=== PATIENT | female | born 1985 | race Caucasian/White ===

== ENCOUNTER 2021-01-21 00:31 | Inpatient (IN) | payer MEDICAID, OTHER ==
[2021-01-21 02:03] LABS: Amphetamine Screen,Urine Detected (NotDetected); Barbiturate Screen,Urine Not Detected (NotDetected); Benzodiazepines Screen,Urine Not Detected (NotDetected); Cocaine Screen,Urine Not Detected (NotDetected); Methadone Screen, Urine Not Detected (NotDetected); Opiate Screen,Urine Not Detected (NotDetected); Oxycodone Screen, Urine Not Detected (NotDetected); Phencyclidine Screen,Urine Not Detected (NotDetected); Tricyclic Antidepressant,Urine Not Detected (NotDetected); Urn Cannabinoid Scrn Not Detected (NotDetected)
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
[2021-01-21] MEDS ORDERED: LORazepam 1 MG TAB PO PRN (04:55)
[2021-01-21] MEDS ORDERED: ACETAMINOPHEN TAB 325 MG TAB PO PRN (04:55)
[2021-01-21] MEDS ORDERED: HALOPERIDOL LACTATE 5 MG/ML 1 ML VIAL IM PRN (04:58)
[2021-01-21] MEDS ORDERED: LORazepam 2 MG/ML INJ IM PRN (04:58)
[2021-01-21] MEDS ORDERED: VENLAFAXINE HCL ER 37.5 MG CAP PO STA (11:26)
[2021-01-21] MEDS: NICOTINE 14MG/24HR PATCH TRANSDERM SCH (11:31)
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
[2021-01-21] MEDS: MAG HYDROX/AL HYDROX/SIMETH 30 ML CUP PO PRN (17:32)
[2021-01-21] MEDS: cloNIDine HCL 0.1 MG TAB PO SCH (22:12)
--- NOTE | 2021-01-22 04:36 | P.MDCNMH ---
History of Present Illness H&P Date: 01/21/21 Chief Complaint: Medical evaluation 35-year-old female with history of PCO S and seasonal ALLERGIES Patient is here for possible vikki and bizarre behavior she was brought in by her mom patient has delusions of being poisoned at home or being ALLERGIC to different types of food. She describes vague symptoms of tingling around her face when eating certain foods and then jumps into talking about body aches. She has flight of ideas and keeps jumping from one thought process another started voicing concerns regarding coping to be evaluated for diabetes and other medical issues like cholesterol. Then she starts talking about seasonal ALLERGIES and stuffy nose. Patient really doesn't have any organized thought process at this time however she doesn't seem to have any major medical complaints to be concerned about at this point she doesn't follow up with any PCP. She denies any drug abuse, denies any alcohol, but does admit to tobacco smoking Otherwise he denies any fevers or chills coughing chest pain or trouble breathing Review of Systems Pertinent positives as noted in HPI. All other systems were reviewed and are negative Past Medical History Past Medical History: No Reported History History of Any Multi-Drug Resistant Organisms: None Reported Past Surgical History: Section Additional Past Surgical History / Comment(s): X3 Past Anesthesia/Blood Transfusion Reactions: No Reported Reaction Past Psychological History: No Psychological Hx Reported, PTSD Smoking Status: Current every day smoker Past Alcohol Use History: Rare Past Drug Use History: None Reported - Past Family History Family Family Medical History: No Reported History Medications and Allergies Home Medications Medication Instructions Recorded Confirmed Type No Known Home Medications 01/21/21 01/21/21 History Allergies Allergy/AdvReac Type Severity Reaction Status Date / Time latex Allergy Dyspnea Verified 01/21/21 08:47 naproxen [From Aleve] Allergy Rash/Hives/ Verified 01/21/21 08:47 Swelling Pepper Allergy Nausea & Verified 01/21/21 14:36 Vomiting Physical Exam Vitals: Vital Signs Temp Pulse Resp BP 01/21/21 10:11 97.9 F 79 18 107/60 Intake and Output 01/21/21 01/21/21 01/22/21 14:59 22:59 06:59 Other: Weight 99.337 kg Constitutional: No acute distress, conversant, pleasant Eyes: Anicteric sclerae, moist conjunctiva, Pupils equal round reactive to light ENMT: NC/AT Oropharynx clear, no erythema, or exudates Neck: Supple, FROM, no masses, or JVD No carotid bruits No thyromegaly Lungs: Clear to auscultation Clear to percussion Normal respiratory effort, no accessory muscle use Cardiovascular: Heart regular in rate and rhythm, No murmurs, gallops, or rubs No peripheral edema Abdominal: Soft Nontender, no guarding, rebound or rigidity Abdomen moving with respiration Normoactive bowel sounds No hepatomegaly, No splenomegaly No palpable mass No abdominal wall hernia noted Skin: Normal temperature, tone, texture, turgor No induration No subcutaneous nodules No rash, lesions No ulcers Extremities: No digital cyanosis No clubbing Pedal pulses intact and symmetrical Radial pulses intact and symmetrical No calf tenderness Psychiatric: Alert and oriented to person, place and time Neuro Muscles Strength 5/5 in all 4 extremities Sensation to light touch grossly present throughout Cranial nerves II-XII grossly intact No focal sensory deficits Lymphatics: no palpable cervical or supraclavicular , or inguinal lymph nodes Cranial Nerve Examination - Cranial Nerves Cranial Nerve II- Optic: Intact Cranial Nerve III- Oculomotor: Intact Cranial Nerve IV- Trochlear: Intact Cranial Nerve V- Trigeminal: Intact Cranial Nerve - Abducens: Intact Cranial Nerve VII- Facial: Intact Cranial Nerve VIII- Auditory: Intact Cranial Nerve IX- Glossopharyngeal: Intact Cranial Nerve X- Vagus: Intact Cranial Nerve XI- Accessory: Intact Cranial Nerve XII- Hypoglossal: Intact Assessment and Plan Assessment: Bizarre behavior acute vikki Psych evaluation Several medical concerns requesting to be evaluated for diabetes mellitus, hyperlipidemia, complains of multiple body aches and off-and-on tingling sensations History of PCO S Tobacco smoking Seasonal ALLERGIES, Flomax when necessary Follow-up labs Check A1c Check lipid profile Check TSH Thank you for allowing us to participate in the care of this patient. We will follow peripherally. Do not hesitate to contact us with questions. Someone can be reached from the [facility] hospitalist group at all hours of the day at [phone].
[2021-01-22] MEDS ORDERED: FLUTICASONE 50MCG/SPRAY NASAL 16GM EA NOSTRIL PRN (05:00)
[2021-01-22] MEDS: NICOTINE 14MG/24HR PATCH TRANSDERM SCH (08:54)
[2021-01-22] MEDS: VENLAFAXINE HCL ER 75 MG CAP PO SCH (08:54)
[2021-01-22] MEDS: cloNIDine HCL 0.1 MG TAB PO SCH ×2 (08:54→21:07)
[2021-01-22 11:26] LABS: Basophils # (A) 0.1 k/uL (0-0.2); Basophils % (A) 1 %; Eosinophils # (A) 0.3 k/uL (0-0.7); Eosinophils % (A) 2 %; HGB 15.1 gm/dL (11.4-16.0); Lymphocytes # (A) 2.9 k/uL (1.0-4.8); Lymphocytes % (A) 24 %; MCH 30.9 pg (25.0-35.0); MCHC 34.3 g/dL (31.0-37.0); MCV 90.1 fL (80.0-100.0); Mean Platelet Volume 7.3; Monocytes # (A) 0.6 k/uL (0-1.0); Monocytes % (A) 5 %; Neutrophils % (A) 67 %; Platelet Count 280 k/uL (150-450); RBC 4.89 m/uL (3.80-5.40); RDW 12.4 % (11.5-15.5)
[2021-01-22 11:27] LABS: ALT 18 U/L (4-34); AST 20 U/L (14-36); African American GFR (CKD) >90 (>60 ml/min/1.73 sqM); Albumin 4.4 g/dL (3.5-5.0); Alkaline Phosphatase 60 U/L (38-126); Anion Gap 10 mmol/L; Blood Urea Nitrogen 14 mg/dL (7-17); Calcium 9.4 mg/dL (8.4-10.2); Carbon Dioxide 26 mmol/L (22-30); Chloride 103 mmol/L (98-107); Glucose 97 mg/dL (74-99); Non-African American GFR(CKD) 89 (>60 ml/min/1.73 sqM); Potassium 4.4 mmol/L (3.5-5.1); Sodium 139 mmol/L (137-145); Total Bilirubin 0.7 mg/dL (0.2-1.3); Total Protein 7.3 g/dL (6.3-8.2)
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
[2021-01-22 17:10] LABS: Chol/HDL Ratio 3.98; Cholesterol 175 mg/dL (0-200); LDL Cholesterol,Calculated 112.8 mg/dL (0.0-131.0)
[2021-01-22 21:29] LABS: Hemoglobin A1C 5.6 % (4.0-6.0)
[2021-01-23] MEDS: NICOTINE 14MG/24HR PATCH TRANSDERM SCH (08:15)
[2021-01-23] MEDS: VENLAFAXINE HCL ER 75 MG CAP PO SCH (08:16)
[2021-01-23] MEDS: cloNIDine HCL 0.1 MG TAB PO SCH ×2 (08:18→21:03)
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
[2021-01-24] MEDS: cloNIDine HCL 0.1 MG TAB PO SCH (08:40)
[2021-01-24] MEDS: NICOTINE 14MG/24HR PATCH TRANSDERM SCH (08:40)
[2021-01-24] MEDS: VENLAFAXINE HCL ER 75 MG CAP PO SCH (08:40)
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
[2021-01-24] MEDS: PRAZOSIN 1 MG CAP PO SCH (20:05)
[2021-01-25] MEDS: VENLAFAXINE HCL ER 75 MG CAP PO SCH (08:33)
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
[2021-01-25] MEDS: PRAZOSIN 1 MG CAP PO SCH (21:01)
[2021-01-25] MEDS: MAG HYDROX/AL HYDROX/SIMETH 30 ML CUP PO PRN (22:56)
[2021-01-26] MEDS: VENLAFAXINE HCL ER 75 MG CAP PO SCH (08:24)
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
[2021-01-26] MEDS: PRAZOSIN 1 MG CAP PO SCH (21:06)
[2021-01-27] MEDS: VENLAFAXINE HCL ER 75 MG CAP PO SCH (08:03)
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
[2021-01-27] MEDS: PRAZOSIN 1 MG CAP PO SCH (20:38)
[2021-01-27] MEDS ORDERED: PALIPERIDONE 3 MG TAB.ER.24 PO SCH (21:00)
[2021-01-28] MEDS: VENLAFAXINE HCL ER 75 MG CAP PO SCH (08:27)
--- NOTE | 2021-01-28 11:12 | P.PN ---
Progress Note - Text Progress Note Date: 01/28/21 Interval History: Patient was in her room and was agreeable to speak with the specification writer in the office. The patient is currently denying any suicidal or homicidal ideation, intention, and/or plan. She is denying any auditory or visualspeech is reporting no paranoia or delusions. The patient is inquiring about discharge. She states that she signed a release of information for her sister Zara has not is the only sister that she trusts at this time. Collateral information was obtained by her sister Zara reports that the patient has been increasingly paranoid and believes that the family has been trying to poison her. Zara vehemently denies that the family is in any way trying to poison her or harm her. She also notes that Maria D has endorsed bizarre delusions to her including believing she was telekinetic, had ability to control lights, and has people following her or trailing her. Zara also mentions that Maria D told her children that there is a bomb in the basement of their home. Zara expresses Maria D began exhibiting psychotic symptoms 4-5 years ago. She suspects it was after the of her son that Maria D has been acting bizarre and isolative. She suspects it is related to Maria D's loss of her first son who . Her sister also reports that Maria D has not been sleeping prior to the admission. Mental Status Exam: General Appearance: Patient appears to be stated age is alert, directable, and cooperative. Multiple tattoos and large spacers for earrings. Behavior: Patient is calmly seated without any agitated behavior. Psychomotor activity is normal. Eye contact is intense. Speech: Patient's speech is spontaneous, rapid, hyperverbal but interruptible. Mood/Affect: Mood is anxious, affect is expansive and intense. Suicidality/Homicidality: Patient denies having any suicidal or homicidal ideation intent or plan. Perceptions: Patient denies any visual hallucinations and denies any auditory hallucinations Though content/process: Denies overt paranoia or delusions. Thought process is linear and logical. Memory and concentration: AOX3, grossly intact for the purposes of this session Judgment and insight: Poor Vital Signs Temp 98.1 F 01/28/21 06:01 Pulse 72 01/28/21 06:01 Resp 16 01/28/21 06:01 BP 116/68 01/28/21 06:01 Pulse Ox 96 01/28/21 06:01 Assessment Posttraumatic stress disorder Bipolar Disorder, type I, manic episode with psychotic features Rule out methamphetamine abuse Rule out cluster B personality disorder Plan: -Patient continues to meet criteria for inpatient psychiatric admission for symptom stabilization and safety. Patient deferred mental health court. -Collateral information from Zara (patient's sister - [phone]) confirms psychosis that the patient is guarded with sharing. -Medications: Continue Effexor XR 75 mg daily for depression/PTSD/anxiety Continue prazosin 1 mg at bedtime for PTSD related nightmares Increase invega to 6 mg at bedtime for mood stabilization. Titrate this medication with plans to transition to TELLEZ invega sustenna. -When necessary Ativan and Haldol for agitation/aggression. -SW on board for discharge planning. Encouraged the patient to participate in milieu.
[2021-01-28] MEDS: PRAZOSIN 1 MG CAP PO SCH (20:17)
[2021-01-28] MEDS: PALIPERIDONE 3 MG TAB.ER.24 PO SCH (20:17)
[2021-01-29] MEDS: VENLAFAXINE HCL ER 75 MG CAP PO SCH (08:19)
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
[2021-01-29] MEDS: PALIPERIDONE 3 MG TAB.ER.24 PO SCH (20:09)
[2021-01-29] MEDS: PRAZOSIN 1 MG CAP PO SCH (20:09)
[2021-01-30] MEDS: VENLAFAXINE HCL ER 75 MG CAP PO SCH (07:50)
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
[2021-01-30] MEDS: PALIPERIDONE 3 MG TAB.ER.24 PO SCH (21:00)
[2021-01-30] MEDS: PRAZOSIN 1 MG CAP PO SCH (21:00)
[2021-01-31] MEDS: VENLAFAXINE HCL ER 75 MG CAP PO SCH (08:20)
--- NOTE | 2021-01-31 15:21 | PN ---
PROGRESS NOTE DATE OF SERVICE: 01/31/2021. CHIEF COMPLAINT: The patient was admitted on petition and was felt to be very paranoid, acting bizarrely and believing people were trying to poison her. INTERVAL HISTORY: Patient has been doing fair. She mostly had a quiet day yesterday. She continues with ups and downs in her mood. She still has a fair amount of distress over the fact being in the hospital altogether. She would note that all of the issues where a family have felt that she was psychotic are misled and that in fact everything that she has struggled with relates to having had real trauma. She talked about different situations where she believed milk and Gatorade had been poisoned and still was quite fixated on the idea that these things were real and not her paranoid delusions. She slept fair last night. Today, she has been up. She comes out in the day area. She attends group. She gets herself around the unit. She will socialize with others. She tolerates her psychotropic medications. I had a telephone contact with the patient's sister, Zara. Part of the conversation was on speaker phone with the patient engaged as well. Part of the conversation was private with Zara. Zara indicated that the patient has likely been struggling with the issues of paranoia over the last 4 years. She noted that several of the family members have had concerns at different times. It seemed like things were getting more intense over the last week or more. Zara gave as an example about some of her thinking that when she was at the park with her children she wondered why there were not guards there and cameras for security. It is noted that since she has been on the unit and has had telephone contact with Zara, that she has not expressed much concern about her children. She had made some accusations believing that her parents were abusing her children. She would make bizarre statements at times, such as talking about a sister being on various medications, which was in fact not the case. Apparently in recent times, police had been called to the house on a number of occasions. One episode recently led to her being brought to the hospital. She was found to have amphetamines in her system which she claimed was poisoning. After returning home, the sister noted that the patient continued to show odd and bizarre behavior. For most of the time after that at different times recently, mother had indicated the patient was acting irrational. At one point recently, she called 911 complaining of a gas leak, though nothing resulted from an inspection of the propane system. In all of these instances, the patient was very adamant about the idea that the issues were real and legitimate and not that she was having some kind of delusional thinking. She was very distressed over feeling that her family has essentially abandon her. At this point, she was very intense about these issues and was adamant about the idea that she does not have paranoia or other delusions. It is noteworthy that she has just been started on Invega as of , and the dose was just increased Sunday to 6 mg. She tolerates her psychotropic medications. MENTAL STATUS: Patient was fairly restless. She answered questions with brief responses. Her thoughts were clear. As the interview went on, she became more and more distressed, feeling that she was in the hospital situation and being held against her will for no valid reason. She became tearful. She had clear thoughts and mostly was focused on making statements about how various events were in fact real and legitimate and not delusional. Her affect was intense. Her mood depressed. She was significantly distressed. She shows paranoid thinking. She voiced no thoughts of harm. Cognition was clear. ASSESSMENT: I will continue the current diagnosis and treatment plan. I will continue psychotropic medications the same. Her Invega has just gone up to 6 mg a day. We will take additional time before we see if she gets more benefit in terms of helping to resolve psychosis. She will continue Effexor XR 75 mg a day and Minipress 1 mg at bedtime. I have briefly reviewed medications issues with the patient, though she was not inclined to engage much in that conversation. We will focus on stabilization and discharge planning. MMODL / IJN: [id number] /
[2021-01-31] MEDS ORDERED: traZODone HCL 50 MG TAB PO SCH (21:00)
[2021-01-31] MEDS: PALIPERIDONE 3 MG TAB.ER.24 PO SCH (21:01)
[2021-01-31] MEDS: PRAZOSIN 1 MG CAP PO SCH (21:01)
[2021-02-01] MEDS: VENLAFAXINE HCL ER 75 MG CAP PO SCH (08:18)
[2021-02-01] MEDS: PALIPERIDONE 6 MG TAB.ER.24 PO SCH ×2 (12:05→20:45)
[2021-02-01 12:41] VITALS: BMI 35.7
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
[2021-02-01] MEDS: PRAZOSIN 1 MG CAP PO SCH (20:45)
[2021-02-01] MEDS: traZODone HCL 50 MG TAB PO SCH (20:45)
[2021-02-01] MEDS ORDERED: PALIPERIDONE 3 MG TAB.ER.24 PO SCH (22:00)
[2021-02-02] MEDS: VENLAFAXINE HCL ER 150 MG CAP PO SCH (08:28)
[2021-02-02] MEDS: PALIPERIDONE 6 MG TAB.ER.24 PO SCH ×2 (08:28→22:26)
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
[2021-02-02] MEDS: PRAZOSIN 1 MG CAP PO SCH (22:25)
[2021-02-02] MEDS: traZODone HCL 50 MG TAB PO SCH (22:26)
[2021-02-03] MEDS: VENLAFAXINE HCL ER 150 MG CAP PO SCH (08:10)
[2021-02-03] MEDS: PALIPERIDONE 6 MG TAB.ER.24 PO SCH ×2 (08:10→12:05)
[2021-02-03] MEDS ORDERED: PALIPERIDONE IM 234 MG/1.5 ML SYG IM STA (11:22)
--- NOTE | 2021-02-03 14:06 | PN ---
PROGRESS NOTE DATE OF SERVICE: 02/03/2021. CHIEF COMPLAINT: The patient was admitted on petition and was felt to be very paranoid, acting bizarrely, believing people were trying to poison her. INTERVAL HISTORY: Patient has been doing fair. She had some ups and downs in her mood yesterday. She was distressed over the discussion we had yesterday, which included that we required to make a report to CPS given the complicated situation that she has been in, with her children being cared for by her family. She had some ups and downs in her mood. She does come out in the day area. She interacts quite a bit with others. She can get intense at times, though also she can seem to get into a little more stable mood state. She attended most groups yesterday and did reasonably well in group. She slept well last night, today she has been up. She continues to show some issues in her thinking. In the 9:30 social work group, the following descriptors were noted: "suspicious racing thought process." In the 11:00 am group, the following descriptors were noted: "bright, dramatic, concrete, initiates. Patient preoccupied with medications and long- acting injection." The patient spent quite a bit of time today focused on the petition issue. We discussed the indications for the petition. It is noted that she signed deferral on January 27. I explained at length the options in regard to a deferral versus a court hearing. We talked about either anticipating her to be in 6 months of treatment with the main focus to be working a treatment plan with her prescribers, and then being consistent in following through with treatment. By the end of the conversation, the patient seems somewhat reassured in that regard. We discussed medication options and the patient was willing to initiate Invega Sustenna as a long-acting injectable. In addition, we talked about some discharge planning issues, given that at this point, the patient is without a residence, though she apparently does have some resources. She tolerates psychotropic medications. MENTAL STATUS: Patient gave fairly good eye contact. She was quite restless. She answered questions appropriately, though at times she tended to ramble. She could be quite intense at times. I needed to interrupt her to bring her back on track in the conversation. As the interview went on, she was a little more focused and appropriately interactive. Her affect, for the most part, was intense. Her mood was dysphoric. She was moderately distressed. She continues to show some paranoid thinking. She voiced no thoughts of harm. Cognition was clear. ASSESSMENT: I will continue the current diagnosis and treatment plan. I will reduce her Invega from 6 mg twice a day down to 6 mg a day. The patient will receive Invega Sustenna 234 mg IM today with anticipation that she will receive a followup dose of Invega 156 mg IM in one week. I had an extensive discussion with the patient regarding treatment issues and her medications. I reviewed indication, potential side effects and longer-term concerns relating to metabolics and movement disorder issues, as it relates to Invega. We discussed followup through [facility]. She will be getting an intake through [facility] while she is on the psychiatric unit. We will be working with her on looking at potential housing options. We will focus on stabilization and discharge planning. VESTA / ALE: [id number] /
[2021-02-03] MEDS: PRAZOSIN 1 MG CAP PO SCH (19:59)
[2021-02-04] MEDS: VENLAFAXINE HCL ER 150 MG CAP PO SCH (09:06)
[2021-02-04] MEDS: PALIPERIDONE 6 MG TAB.ER.24 PO SCH (09:06)
[2021-02-04] MEDS ORDERED: TETRAHYDROZOLINE 0.05% OPHTH DROPS 15 ML BTL BOTH EYES PRN (17:43)
--- NOTE | 2021-02-04 18:53 | PN ---
PROGRESS NOTE DATE OF SERVICE: 02/04/2021. CHIEF COMPLAINT: The patient was admitted on petition and was felt to be very paranoid, acting bizarrely, and believing people were trying to poison her. INTERVAL HISTORY: Patient has been doing fair. She had a quiet day yesterday. She comes out on the unit. She interacts with others, at times she can present in an apparent superficially bright manner. She attends groups and seems to do well in groups. She received Invega Sustenna 234 mg IM injection yesterday without difficulty. She slept fairly well last night. She does wake some through the night, though says it has been better than what she had been sleeping today. She has been up. She continues to do the same. She did complain of some dry eyes, whether that was related to her medications was not clear. She says overall her mood is improved. It is noteworthy that she talked about discharge planning issues some. She also seems to have a little better insight about her situation. She was able to say today that the things her sisters have said about observing her did not really take into account that they did not understand the severity of her PTSD issues and how that had caused her to get into such a high level of distress. The way she presented it, seemed to indicate that she was a little more accepting of the idea that her thought process may have gone awry. A CPS referral has been made. The patient tolerates her psychotropic medications. MENTAL STATUS: Patient sat without restlessness. She gave fairly good eye contact. She answered questions with direct responses. She asked a few appropriate questions. Her thoughts were clear. Her affect was a little constricted though she presented in a calm manner. Her mood was reserved though not clearly down or depressed. She did not appear to be significantly distressed. There was no immediate indication of symptoms of thought disorder, though some level of paranoia may persist, though lessening overall. She voiced no thoughts of harm. Cognition was clear. ASSESSMENT: I will continue the current diagnosis and treatment plan. The patient received Invega Sustenna 234 mg IM on February 03. She will be due for her followup injection of 156 mg on February 10. I reduced her Invega oral to 6 mg a day and discussed with the patient that she might continue on oral medications for a few weeks upon discharge. She will continue Effexor 150 mg a day. It is noted that the patient had set up an intake at [facility] in [facility]. In addition there was question about her moving down to this area, though because of custody issues the patient apparently has an order where she is not able to go beyond 100 miles from her or stated residence in [place]. As such, at this point, we likely will need to refer her back to [facility] in [place]. It does sound as if she already has had an intake, so there should not be much issue to get her referred for followup including for her medications. I would refer the reader to my progress note of February 01, which details information provided by her sister about the apparent severity of her functioning leading up to her coming into the hospital. The patient on her part pretty much disagrees with most, if not all, of what the sisters had been reporting. As noted above, she may be showing some signs of a little more acceptance at this point. We will focus on stabilization and discharge planning. MMBELL / VANIN: [id number] /
[2021-02-04] MEDS: PRAZOSIN 1 MG CAP PO SCH (20:11)
[2021-02-05] MEDS: PALIPERIDONE 6 MG TAB.ER.24 PO SCH (08:10)
[2021-02-05] MEDS: VENLAFAXINE HCL ER 150 MG CAP PO SCH (08:10)
--- NOTE | 2021-02-05 13:47 | P.PN ---
Progress Note - Text Progress Note Date: 02/05/21 Interval History: Patient was seen in his room and was directable and agreeable to speak with personal lines underwriter . Patient presented to the hospital on 01/20/21, brought in by her mother to the emergency department for bizarre behavior. The patient has been noted to be very paranoid and acting bizarrely, believing that people are poisoning her. Patient denies any side effects from the medications and has been compliant with meds. Mental Status Exam: General Appearance: Patient appears to be stated age is alert, directable, and cooperative. Behavior: Patient is calmly seated without any agitated behavior. Speech: Patient's speech is fluent and nonpressured. Mood/Affect: Mood is improving mildly, affect is congruent and constricted. Suicidality/Homicidality: Patient denies having any suicidal or homicidal ideation intent or plan. Perceptions: Patient denies any visual hallucinations and denies any auditory hallucinations Though content/process: There is no evidence of any delusional thought content and thought process is linear and goal-directed. Memory and concentration: AOX3, grossly intact for the purposes of this session Judgment and insight: Improving mildly Assessment Posttraumatic stress disorder Bipolar Disorder, type I, manic episode with psychotic features Rule out methamphetamine abuse Rule out cluster B personality disorder Plan: -Patient continues to meet criteria for inpatient psychiatric admission for symp elizabeth stabilization and safety. -Medications: Continue medication as before -When necessary Ativan and Haldol for agitation/aggression. -SW on board for discharge planning. Encouraged the patient to participate in milieu.
[2021-02-05] MEDS: PRAZOSIN 1 MG CAP PO SCH (19:51)
[2021-02-06] MEDS: PALIPERIDONE 6 MG TAB.ER.24 PO SCH (08:33)
[2021-02-06] MEDS: VENLAFAXINE HCL ER 150 MG CAP PO SCH (08:33)
--- NOTE | 2021-02-06 10:16 | P.PN ---
Progress Note - Text Progress Note Date: 02/06/21 Interval History: Patient was seen in the room and was directable and agreeable to speak with automobile service writer . She was brought in by her mother and sister who feel she is manic. Patient states she has been feeling "unwell" for the last couple of years. States that she is unable to be a good mother or get things done in a timely manner.. At this time patient denies any suicidal or homical ideations, intent or plan. Patient denies any auditory, visual hallucinations and denies any paranoia or delusions. Patient denies any side effects from the medications and has been compliant with meds. Mental Status Exam: General Appearance: Patient appears to be stated age is alert, directable, and cooperative. Behavior: Patient is calmly seated without any agitated behavior. Speech: Patient's speech is fluent and nonpressured. Mood/Affect: Mood is improving mildly, affect is congruent and constricted. Suicidality/Homicidality: Patient denies having any suicidal or homicidal ideation intent or plan. Perceptions: Patient denies any visual hallucinations and denies any auditory hallucinations Though content/process: There is no evidence of any delusional thought content and thought process is linear and goal-directed. Memory and concentration: AOX3, grossly intact for the purposes of this session Judgment and insight: Improving mildly Assessment Posttraumatic stress disorder Unspecified psychosis Rule out methamphetamine abuse Plan: -Patient continues to meet criteria for inpatient psychiatric admission for symptom stabilization and safety. -Medications: Continue medication as before -When necessary Ativan and Haldol for agitation/aggression. -SW on board for discharge planning. Encouraged the patient to participate in milieu.
[2021-02-06] MEDS: PRAZOSIN 1 MG CAP PO SCH (20:33)
[2021-02-07] MEDS: PALIPERIDONE 6 MG TAB.ER.24 PO SCH (08:25)
[2021-02-07] MEDS: ARTIFICIAL TEARS-HYPROMELLOSE DROPS 15 ML BTL BOTH EYES PRN (08:26)
[2021-02-07] MEDS: VENLAFAXINE HCL ER 150 MG CAP PO SCH (08:26)
[2021-02-07] MEDS ORDERED: PALIPERIDONE IM 156 MG/ML SYG IM STA (11:52)
--- NOTE | 2021-02-07 13:16 | P.PN ---
Progress Note - Text Progress Note Date: 02/07/21 Interval History: Patient was seen wandering the hallways and was directable and agreeable to speak with financial writer in the office. Patient reports that she is feeling better. She is currently not reporting any suicidal or homicidal ideation, intention, and/or plan. She is not reporting any auditory or visual hallucinations. She is denying any overt paranoia or other delusions but continues to express distrust towards her family members. She states that she'll be staying with her sister Danette but that her relationship with her mother and her other sisters continues to be strained. He is currently not reporting any significant paranoia or belief that there is poisoning going on. She reports no issues with sleep or appetite. She has been adherent with her medications and is not reporting any significant side effects. She is willing to receive the second dose of Invega Sustenna today. She does continue to display some limited insight; not believing that she has psychotic symptoms. Mental Status Exam: General Appearance: Patient appears to be stated age is alert, directable, and cooperative. Dressed in a white T-shirt and exercise pants. She has large spacers for earrings. Behavior: Patient is calmly seated without any agitated behavior. I contact is appropriate. Psychomotor activity appears normal. Speech: Patient's speech is fluent and nonpressured. Somewhat rapid but otherwise with normal fluency and tone. Interruptible. Mood/Affect: Mood is improving mildly, affect is congruent and a little expansive. Suicidality/Homicidality: Patient denies having any suicidal or homicidal ideation intent or plan. Perceptions: Patient denies any visual hallucinations and denies any auditory hallucinations Though content/process: There is no evidence of any delusional thought content and thought process is linear and goal-directed. Memory and concentration: AOX3, grossly intact for the purposes of this session Judgment and insight: Improving mildly Vital Signs Temp 98.1 F 02/07/21 06:26 Pulse 77 02/07/21 06:26 Resp 18 02/07/21 06:26 BP 109/58 02/07/21 06:26 Pulse Ox 98 02/04/21 15:58 Intake & Output 02/06/21 02/07/21 02/07/21 18:59 06:59 18:59 Weight 103.1 kg Assessment Posttraumatic stress disorder Bipolar Disorder, type I, manic episode with psychotic features Rule out methamphetamine abuse Rule out cluster B personality disorder Plan: -Patient continues to meet criteria for inpatient psychiatric admission for symptom stabilization and safety. Patient deferred mental health court. -Medications: Patient received Invega Sustenna 234 mg IM on 02/03/2021. We will administer Invega Sustenna 156 [place] grams IM today. Continue Invega 6 mg by mouth daily for psychosis Continue Effexor XR 150 mg by mouth daily for PTSD/anxiety/depression Continue prazosin 1 mg by mouth at bedtime for PTSD related nightmares -When necessary Ativan and Haldol for agitation/aggression. -NRT - nicotine patch -SW on board for discharge planning. Encouraged the patient to participate in milieu.
[2021-02-07] MEDS: PRAZOSIN 1 MG CAP PO SCH (20:09)
[2021-02-08 07:11] VITALS: BP 100/51; PULSE 83; RESP 16; TEMP 97.8
[2021-02-08] MEDS: VENLAFAXINE HCL ER 150 MG CAP PO SCH (08:20)
[2021-02-08] MEDS: PALIPERIDONE 6 MG TAB.ER.24 PO SCH (08:20)
[2021-02-08] MEDS: ARTIFICIAL TEARS-HYPROMELLOSE DROPS 15 ML BTL BOTH EYES PRN ×2 (11:34→15:32)
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
[2021-02-10] MEDS ORDERED: PALIPERIDONE IM 156 MG/ML SYG IM ONE (10:00)
== END 2021-02-08 15:49 | disposition home or self-care (01) | DRG 885 ==
LOC: EC 00:31 → 3MHU 04:34
PROVIDERS: ADMIT Psychiatry & Neurology Psychiatry; ATTEND Psychiatry & Neurology Psychiatry
DX: F31.0 Bipolar disorder, current episode hypomanic (principal); F17.210 Nicotine dependence, cigarettes, uncomplicated; F22 Delusional disorders; F43.10 Post-traumatic stress disorder, unspecified; J30.2 Other seasonal allergic rhinitis; F90.9 Attention-deficit hyperactivity disorder, unspecified type; Z59.0 Homelessness; Z56.0 Unemployment, unspecified; Z20.822 Contact with and (suspected) exposure to COVID-19; Z98.890 Other specified postprocedural states; Z88.6 Allergy status to analgesic agent; Z91.040 Latex allergy status; Z63.5 Disruption of family by separation and divorce; Z91.410 Personal history of adult physical and sexual abuse; Z79.899 Other long term (current) drug therapy; Z81.1 Family history of alcohol abuse and dependence; Z91.14 Patient's other noncompliance with medication regimen
CPT/HCPCS: 80053; 80061; 80306; 81025; 82075; 83036; 84443; 85025; 87635; 96361; 96372; 96374; 96375; 99284; 99285

== ENCOUNTER 2021-02-15 18:31 | Emergency (ER) | payer OTHER ==
[2021-02-15 18:40] VITALS: BP 135/89; PULSE 116; RESP 20; TEMP 98.8
--- NOTE | 2021-02-15 19:39 | ED ---
General Adult HPI - General Source: patient, RN notes reviewed Mode of arrival: ambulatory Limitations: no limitations <Choco Humphrey - Last Filed: 02/15/21 21:22> <Manasa Patricia - Last Filed: 02/16/21 01:12> - General Chief complaint: Upper Respiratory Infection Stated complaint: wheezing, cough & congestion Time Seen by Provider: 02/15/21 19:10 - History of Present Illness Initial comments: 35-year-old female with a past medical history PTSD presents to the emergency room for "Covid symptoms." Patient reports that she is coughing and congested. Patient states this just started today. Patient is anxious because she was just on [address]. and feels she could've been exposed to Covid. She states she feels a little short of breath as well. Patient states sometimes her chest hurts when she coughs but otherwise denies chest pain. Patient also has nasal congestion. States that she is coughing up phlegm.Patient has no other complaints at this time including chest pain, abdominal pain, nausea or vomiting, headache, or visual changes. (Choco Humphrey) - Related Data Previous Rx's Medication Instructions Recorded Paliperidone IM [Invega Sustenna] 156 mg IM QMONTHLY #1 syr 02/08/21 Prazosin [Minipress] 1 mg PO HS 30 Days cap 02/08/21 Venlafaxine HCl ER [Effexor XR] 150 mg PO DAILY 30 Days cap.er.24h 02/08/21 Benzonatate [Tessalon Perles] 200 mg PO Q8H PRN #15 capsule 02/15/21 Allergies Allergy/AdvReac Type Severity Reaction Status Date / Time latex Allergy Dyspnea Verified 02/15/21 18:41 naproxen [From Aleve] Allergy Rash/Hives/ Verified 02/15/21 18:41 Swelling Pepper Allergy Nausea & Verified 02/15/21 18:41 Vomiting Review of Systems ROS Other: All systems not noted in ROS Statement are negative. <Choco Humphrey - Last Filed: 02/15/21 21:22> ROS Other: All systems not noted in ROS Statement are negative. <Manasa Patricia - Last Filed: 02/16/21 01:12> ROS Statement: Those systems with pertinent positive or pertinent negative responses have been documented in the HPI. Past Medical History Past Medical History: No Reported History History of Any Multi-Drug Resistant Organisms: None Reported Past Surgical History: Section Additional Past Surgical History / Comment(s): X3 Past Anesthesia/Blood Transfusion Reactions: No Reported Reaction Past Psychological History: No Psychological Hx Reported, PTSD Smoking Status: Current every day smoker Past Alcohol Use History: Rare Past Drug Use History: None Reported - Past Family History Family Family Medical History: No Reported History <Choco Humphrey - Last Filed: 02/15/21 21:22> General Exam Limitations: no limitations General appearance: alert, in no apparent distress Head exam: Present: atraumatic, normocephalic, normal inspection Eye exam: Present: normal appearance, PERRL, EOMI. Absent: scleral icterus, conjunctival injection, periorbital swelling ENT exam: Present: normal exam, mucous membranes moist Neck exam: Present: normal inspection, full ROM. Absent: tenderness, meningismus, lymphadenopathy Respiratory exam: Present: normal lung sounds bilaterally. Absent: respiratory distress, wheezes, rales, rhonchi, stridor Cardiovascular Exam: Present: regular rate, normal rhythm, normal heart sounds. Absent: systolic murmur, diastolic murmur, rubs, gallop, clicks GI/Abdominal exam: Present: soft, normal bowel sounds. Absent: distended, tenderness, guarding, rebound, rigid <Choco Humphrey - Last Filed: 02/15/21 21:22> Course Vital Signs 02/15/21 18:38 Temperature 98.8 F Pulse Rate 116 H Respiratory 20 Rate Blood Pressure 135/89 O2 Sat by Pulse 97 Oximetry Medical Decision Making <Choco Humphrey P - Last Filed: 02/15/21 21:22> <Manasa Patricia - Last Filed: 02/16/21 01:12> - Medical Decision Making Vitals are stable. Patient found to be tachycardic likely secondary to anxiety. Patient is very anxious. pt presents for productive cough as well as congestion times one day. She was concerned for coronavirus as she was recently on [address] and could've been exposed without knowing it. Denies fevers. Admits to some shortness of breath, denies chest pain except when coughing. Patient was not sure if she could be . Therefore hCG was obtained which was negative. Coronavirus is obtained, nondetected. Chest x-ray shows a normal chest. At this time patient likely has viral upper strength infection. She can be discharged home to follow-up with her doctor, has an appointment on . This is out of town. If she has any worsening symptoms she will return to the emergency room. (Choco Humphrey) I was available for consultation in the emergency department. The history and physical exam were done by the midlevel provider. I was consulted for this patients care. I reviewed the case with the midlevel provider and based on their presentation of the patient, I agree with the assessment, medical decision making and plan of care as documented. Chart was dictated using [employer] dictation software. Attempts were made to correct any dictation errors however some typographical errors may persist. (Manasa Patricia) - Lab Data Lab Results 02/15/21 02/15/21 Range/Units 19:52 19:52 Urine HCG, Qual Not Detected (Not Detectd) Coronavirus (PCR) Not Detected (Not Detectd) Disposition Is patient prescribed a controlled substance at d/c from ED?: No Time of Disposition: 21:22 <Choco Humphrey - Last Filed: 02/15/21 21:22> <Manasa Patricia - Last Filed: 02/16/21 01:12> Clinical Impression: Cough, Nasal congestion, Lab test negative for COVID-19 virus Disposition: HOME SELF-CARE Condition: Good Instructions (If sedation given, give patient instructions): Acute Cough (ED) Additional Instructions: Please follow-up with your primary care provider. Take cough medicine as directed. Return to the emergency room for any worsening symptoms. Prescriptions: Benzonatate [Tessalon Perles] 200 mg PO Q8H PRN #15 capsule PRN Reason: Cough Referrals: Tom Montano MD [STAFF PHYSICIAN] - 1-2 days
--- NOTE | 2021-02-15 20:56 | XR ---
EXAMINATION TYPE: XR chest 2V DATE OF EXAM: 02/15/2021 COMPARISON: NONE HISTORY: Cough TECHNIQUE: 2 views FINDINGS: Heart and mediastinum are normal. Lungs are clear. Diaphragm is normal. Bony thorax appears normal. IMPRESSION: Normal chest.
== END 2021-02-15 21:52 | disposition home or self-care (01) ==
LOC: EC 18:31
DX: R05 Cough (principal); R09.81 Nasal congestion; R06.02 Shortness of breath; F17.200 Nicotine dependence, unspecified, uncomplicated; Z20.822 Contact with and (suspected) exposure to COVID-19; Z91.040 Latex allergy status; Z88.6 Allergy status to analgesic agent; Z91.018 Allergy to other foods
CPT/HCPCS: 71046; 81025; 87635; 99285